=== PATIENT | female | born 1980 | race African-American/Black ===

== ENCOUNTER 2020-07-23 18:04 | Emergency (ER) | payer SELFPAY ==
[~2020-07-23] VITALS: Ht 172.7 cm; Wt 91.1 kg
[2020-07-23] MEDS ORDERED: DIPH,PERTUSS(ACELL),TET VAC/PF 0.5 ML SYRINGE. VAX IM ONE (18:45)
[2020-07-23] MEDS ORDERED: HYDROcodone/APAP 5/325MG 1 TAB TABLET PO ONE (18:45)
[2020-07-23] MEDS ORDERED: LIDOCAINE 2%/EPI 1:100,000 20 ML VIAL. INJ ONE (18:45)
[2020-07-23 19:03] VITALS: BP 126/68
--- NOTE | 2020-07-23 21:24 | PHYS DOC ---
Past Medical History Past Medical History: Diabetes-Type II Past Surgical History: Cholecystectomy, Smoking Status: Current Every Day Smoker Additional Information: 03/23 ppd Alcohol Use: Occasionally General Adult EDM: Chief Complaint: ABSCESS HPI: HPI: Patient is a 40 year old female presents to the emergency department with complaints of an abscess to her right buttock cheek for the past 9 days. Patient states she has had one in the past, she tried to treat this abscess with warm baths at home. States that it slowly became worse and now she cannot take the pain anymore. Patient denies any drainage from this abscess site. Patient denies any other physical complaints or physical concerns. Patient denies any allergies to medications, states she takes no prescription medications at home. Review of Systems: Review of Systems: 14 body systems of review of systems have been reviewed. See HPI for pertinent positives and negative responses, otherwise all other systems are negative, nonpertinent or noncontributory. Heart Score: C/O Chest Pain: No Risk Factors: Risk Factors: DM, Current or recent (<one month) smoker, HTN, HLP, family history of CAD, obesity. Risk Scores: Score 0 - 3: 2.5% MACE over next 6 weeks - Discharge Home Score 4 - 6: 20.3% MACE over next 6 weeks - Admit for Clinical Observation Score 7 - 10: 72.7% MACE over next 6 weeks - Early Invasive Strategies Current Medications: Current Medications Medications (Trade) Dose Ordered Sig/Lary Start Time Stop Time Status Last Admin Dose Admin Acetaminophen/ Hydrocodone Bitart (Lortab 5/325) 2 tab 1X ONCE 07/23/20 18:45 07/23/20 18:46 DC 07/23/20 19:00 2 TAB Diphtheria/ Tetanus/Acell Pertussis (ADACEL TDap SYRINGE) 0.5 ml ONCE ONCE 07/23/20 18:45 07/23/20 18:46 DC 07/23/20 19:03 0.5 ML Lidocaine/ Epinephrine (LIDOCAINE 2%-EPI 1:100,000 multi-dose) 20 ml 1X ONCE 07/23/20 18:45 07/23/20 18:46 DC 07/23/20 19:03 20 ML Allergies: Allergies: Allergies Coded Allergies Type Severity Reaction Last Updated Verified No Known Drug Allergies 07/23/20 No Physical Exam: PE: Constitutional: Well developed, well nourished, no acute distress, non-toxic appearance. 40-year-old female no apparent distress. HENT: Normocephalic, atraumatic, bilateral external ears normal, oropharynx moist, no oral exudates, nose normal. Eyes: PERRLA, EOMI, conjunctiva normal, no discharge. Neck: Normal range of motion, no tenderness, supple, no stridor. Cardiovascular:Heart rate regular rhythm, no murmur Lungs & Thorax: Bilateral breath sounds clear to auscultation Abdomen: Bowel sounds normal, soft, no tenderness, no masses, no pulsatile masses. Skin: Warm, dry, no erythema, no rash. Abscess to right buttock, central punctum appreciated, no drainage from abscess. Abscess measures 6 cm in diameter. No other infectious process appreciated. Back: No tenderness, no CVA tenderness. Extremities: No tenderness, no cyanosis, no clubbing, ROM intact, no edema. Neurologic: Alert and oriented X 3, normal motor function, normal sensory function, no focal deficits noted. Psychologic: Affect normal, judgement normal, mood normal. Current Patient Data: Vital Signs: Vital Signs Date Time Temp Pulse Resp B/P (MAP) Pulse Ox O2 Delivery O2 Flow Rate FiO2 07/23/20 19:03 91 16 126/68 (87) 98 Room Air 07/23/20 18:16 98.9 98.9 EKG: EKG: [] Radiology/Procedures: Radiology/Procedures: [] Course & Med Decision Making: Course & Med Decision Making Pertinent Labs and Imaging studies reviewed. (See chart for details) 40-year-old female, vital signs reviewed, presents emergency department co ncerning an abscess to her right buttock. See I&D note. Patient gave verbal understanding of abscess wound care instructions, rosy sargent's instructions, will have abscess reevaluated in 3 days by primary care. Will start patient on Bactrim DS twice daily x10 days. Patient gave verbal understanding of return to ER precautions and concerns, had no further questions or concerns and was discharged home without incident. Sonya Disclaimer: Sonya Disclaimer: This electronic medical record was generated, in whole or in part, using a voice recognition dictation system. Departure Departure Impression: Primary Impression: Abscess Disposition: 01 HOME / SELF CARE / HOMELESS Condition: GOOD Referrals: UNKNOWN PCP NAME (PCP) Patient Instructions: Abscess Additional Instructions: You are seen today in the emergency department for an abscess to your buttocks. The infection was drained, a packing was placed inside the cavity. As we discussed, please take 2-3 warm baths over the next several days, please have your abscess evaluated by your primary care doctor. Please return to the emergency department for worsening symptoms or other concerns, I am starting you on an antibiotic you will take twice a day for the next 10 days. EMERGENCY DEPARTMENT GENERAL DISCHARGE INSTRUCTIONS Thank you for coming to [facility] Emergency Department (ED) today and trusting us with you care. We trust that you had a positive experience in our Emergency Department. If you wish to speak to the department management, you may call the Director at [phone]. YOUR FOLLOW UP INSTRUCTIONS ARE FOLLOWS: 1. Do you have a private Doctor? If you do not have a private doctor, please ask for a resource list of physicians or clinics that may be able to assist you with follow up care. 2. The Emergency Physicain has interpreted your x-rays. The X-Ray specialist will also review them. If there is a change in the findings, you will be notified in 48 hours when at all possible. 3. A lab test or culture has been done, your results will be reviewed and you will be notified if you need a change in treatment. ADDITIONAL INSTRUCTIONS AND INFORMATION: 1. Your care today has been supervised by a physician who is specially trained in emergency care. Many problems require more than one evaluation for a complete diagnosis and treatment. We recommend that you schedule your follow up appointment as recommended to ensure complete treatment of you illness or injury. If you are unable to obtain follow up care and continue to have a problem, or if your condition worsens, we recommend that you return to the ED. 2. We are not able to safely determine your condition over the phone nor are we able to give sound medical advice over the phone. For these safety reasons, if you call for medical advice we will ask you to come to the ED for further evaluation. 3. If you have any questions regarding these discharge instructions please call the ED at [phone]. SAFETY INFORMATION: In the interest of safety, wellness, and injury prevention; we encourage you to wear your sealbelt, if you smoke; quite smoking, and we encourage family to use a protective helmet for bicycling and other sporting events that present an increased risk for head injury. IF YOUR SYMPTOMS WORSEN OR NEW SYMPTOMS DEVELOP, OR YOU HAVE CONCERNS ABOUT YOUR CONDITION; OR IF YOUR CONDITION WORSENS WHILE YOU ARE WAITING FOR YOUR FOLLOW UP APPOINTMENT; EITHER CONTACT YOUR PRIMARY CARE DOCTOR, THE PHYSICIAN WHOSE NAME AND NUMBER YOU WERE GIVEN, OR RETURN TO THE ED IMMEDIATELY. Scripts Sulfamethoxazole/Trimethoprim (BACTRIM DS TABLET) 1 Each Tablet 1 TAB PO BID for ABSCESS for 10 Days, #20 TAB 0 Refills Prov: NARCISA LEOS APRN 07/23/20 Incision and Drainage Indication: abscess Procedure: The patient was positioned appropriately. Abscess area was prepped with Betadine local anesthesia was achieved with 2% lidocaine with epinephrine, 4 cc. An incision was then made over the apex of the lesion and 20 cc purulent bloody jacobsen drainage material was expressed. Loculations were disrupted with curved forcep, the cavity was irrigated with 500 cc normal saline, packed with quarter inch sterile iodoform gauze, 2.5 feet. Patient tetanus status is brought up-to-date in the emergency department. The patient tolerated the procedure well. Complications: none. NARCISA LEOS APRN July 23, 2020 21:24
[2020-07-23] MEDS ORDERED: SULF1TAB24 PO (21:35)
[2020-07-23] MEDS ORDERED: oxyCODONE/APAP 5/325 1 TAB TABLET PO ONE (21:45)
== END 2020-07-23 20:04 | disposition home or self-care (01) ==
LOC: ER 18:04
DX: L02.31 Cutaneous abscess of buttock (principal); E11.9 Type 2 diabetes mellitus without complications; F17.200 Nicotine dependence, unspecified, uncomplicated; Z90.49 Acquired absence of other specified parts of digestive tract
CPT/HCPCS: 10060; 87071; 87075; 90471; 90715; 99283; J3490